=== PATIENT | male | born 1955 | race Two or more races ===

== ENCOUNTER 2024-10-30 05:00 | Day surgery (SDC) | payer OTHER ==
[2024-10-27 12:29] LABS: BASO % 0.4 % (0.1-1.2); EOS # 0.13 (0.04-0.54); EOS % 1.9 % (0.7-7.0); LYMPH # 2.42 (1.18-3.74); LYMPH % 35.9 % (19.3-53.1); MEAN PLATELET VOLUME 10.40 fl (9.4-12.4); MONO # 0.84 (0.24-0.82); NEUT # 3.29 (1.56-6.13); NEUT % 48.9 % (34.0-71.1); RED CELL DISTRIBUTION WIDTH 13.3 % (11.6-14.4)
[2024-10-27 12:31] LABS: URINE APPEARANCE Clear; URINE BACTERIA 14.3 uL (0.0-1933); URINE BILIRRUBIN Negative (NEGATIVE); URINE BLOOD Negative; URINE COLOR Yellow; URINE EPITHELIAL CELLS 3.0 uL (0.0-38.8); URINE GLUCOSE Negative (NEGATIVE); URINE KETONE Negative (NEGATIVE); URINE LEUKOCYTE Negative; URINE NITRATE Negative; URINE PROTEIN >=1000 (NEGATIVE); URINE RBC 4.6 uL (0.0-20.8); URINE UROBILINOGEN 0.2 E.U./dl; URINE WBC 8.4 uL (0.0-23.2)
[2024-10-27 12:32] LABS: URINE CAST 0.58 uL (0.0-1.40)
[2024-10-27 12:38] LABS: MONO % 12.5 % (4.7-12.5)
[2024-10-27 12:52] VITALS: BP 160/73
[2024-10-27 12:56] LABS: ALT/SGPT 26.0 U/L (12-78); AST/SGOT 18.0 U/L (15-37); BILIRUBIN TOTAL 0.54 mg/dL (0.3-1.2); BUN CREA RATIO 7.0 (7.0-25.0); CREATININE SERUM 3.07 mg/dL (0.70-1.30); GFR 20.3; GLOBULINA 3.0 G/DL (2.4-3.5); GLUCOSE FASTING 106.0 mg/dL (65-100); OSMOLALITY SERUM 281.0 MOSM/KG (275-295)
[2024-10-28 12:39] LABS: INR 1.06
[~2024-10-30] VITALS: Ht 190.5 cm; Wt 86.2 kg
[~2024-10-30 05:00] MED LIST: ALLERGY RELIE15.8 ML NASAL; AZELASTINE137 MCG/0. NASAL; CARVEDILOL6.25 MG; HUMALOG100 UNIT/2; LANTUS SOL100 UNIT/1; RAYOS5 MG PO; TAMS0.4C PO
[2024-10-30] MEDS ORDERED: CEFAZOLIN SODIUM 1,000 MG VIAL ONE (07:16)
[2024-10-30] MEDS ORDERED: TYLENOL ARTHRI650 MG PO (07:45)
[2024-10-30] MEDS ORDERED: KETO10TA2 PO (07:45)
[2024-10-30] MEDS ORDERED: TRAMADOL HCL50 MG PO (07:45)
[2024-10-30] MEDS ORDERED: MIRALAX17 GM PO (07:45)
[2024-10-30] MEDS ORDERED: MORPHINE SULFATE 4 MG/ML VIAL IV ONE ×2 (10:15→11:10)
[2024-10-30] MEDS ORDERED: ENALAPRILAT DIHYDRATE 1.25 MG/ML VIAL IV ONE ×4 (11:31→11:40)
[2024-10-30] MEDS ORDERED: hydrALAZINE HCL 20 MG VIAL ONE ×2 (12:23→14:19)
[2024-10-30] MEDS ORDERED: hydrALAZINE HCL 20 MG VIAL IV ONE (15:45)
== END 2024-10-30 17:00 | disposition home or self-care (01) ==
LOC: CIR.AMB 05:00
PROVIDERS: ATTEND Surgery
DX: K40.90 Unilateral inguinal hernia, without obstruction or gangrene, not specified as recurrent (principal); K42.0 Umbilical hernia with obstruction, without gangrene
CPT/HCPCS: 49650; 49592; C1781

== ENCOUNTER 2024-11-07 14:09 | Emergency (ER) | payer OTHER ==
[~2024-11-07] VITALS: Ht 190.5 cm; Wt 86.2 kg
[~2024-11-07 14:09] MED LIST changes: +KETO10TA2 PO; +MIRALAX17 GM PO; +TRAMADOL HCL50 MG PO; +TYLENOL ARTHRI650 MG PO
[2024-11-07 16:05] LABS: BASO % 0.3 % (0.1-1.2); EOS # 0.19 (0.04-0.54); EOS % 2.9 % (0.7-7.0); LYMPH # 2.16 (1.18-3.74); LYMPH % 32.4 % (19.3-53.1); MEAN PLATELET VOLUME 9.80 fl (9.4-12.4); MONO # 0.80 (0.24-0.82); MONO % 12.0 % (4.7-12.5); NEUT # 3.44 (1.56-6.13); NEUT % 51.6 % (34.0-71.1); RED CELL DISTRIBUTION WIDTH 13.9 % (11.6-14.4)
[2024-11-07 16:23] LABS: URINE APPEARANCE Clear; URINE BILIRRUBIN Negative (NEGATIVE); URINE BLOOD Negative; URINE COLOR Dark Yellow; URINE KETONE Negative (NEGATIVE); URINE LEUKOCYTE Trace; URINE NITRATE Positive; URINE UROBILINOGEN 1.0 E.U./dl
[2024-11-07 16:27] LABS: URINE EPITHELIAL CELLS 3.8 uL (0.0-38.8); URINE RBC 24.4 uL (0.0-20.8)
[2024-11-07 16:46] LABS: URINE GLUCOSE 100 MG/DL (NEGATIVE)
[2024-11-07 16:47] LABS: URINE BACTERIA 2.4 uL (0.0-1933); URINE CAST 0.58 uL (0.0-1.40); URINE PROTEIN 300 (NEGATIVE); URINE WBC 1.5 uL (0.0-23.2)
[2024-11-07 16:58] LABS: ALT/SGPT 22.0 U/L (12-78); AST/SGOT 33.0 U/L (15-37); BILIRUBIN TOTAL 0.31 mg/dL (0.3-1.2); BUN CREA RATIO 4.0 (7.0-25.0); CREATININE SERUM 3.8 mg/dL (0.70-1.30); GFR 15.87; GLOBULINA 3.7 G/DL (2.4-3.5); GLUCOSE FASTING 150.0 mg/dL (65-100); OSMOLALITY SERUM 282.0 MOSM/KG (275-295)
[2024-11-07] MEDS ORDERED: CEFTRIAXONE SODIUM 1,000 MG VIAL IM ONE (19:30)
[2024-11-07] MEDS ORDERED: CEFADROXIL500 MG PO (20:05)
== END 2024-11-07 22:14 ==
LOC: ER 14:09
PROVIDERS: Emergency Medicine
DX: R30.0 Dysuria (principal); E11.22 Type 2 diabetes mellitus with diabetic chronic kidney disease; I12.0 Hypertensive chronic kidney disease with stage 5 chronic kidney disease or end stage renal disease; N18.6 End stage renal disease; Z79.4 Long term (current) use of insulin; N39.0 Urinary tract infection, site not specified; N40.1 Benign prostatic hyperplasia with lower urinary tract symptoms; N13.8 Other obstructive and reflux uropathy
CPT/HCPCS: 36415; 51702; 74176; 96372; 99284; J0696